=== PATIENT | male | born 1990 | race Caucasian/White ===

== ENCOUNTER → 2020-03-14 16:59 | Outpatient (CLI) | payer BC, SELFPAY ==
[2020-03-14 18:22] LABS: Basophils # 0.1 K/mm3 (0-0.2); Basophils % 0.9 % (0.1-2.0); Eosinophils # 0.1 K/mm3 (0.0-0.4); Eosinophils % 1.5 % (0.1-12.0); Hematocrit 48.5 % (42.0-52.0); Hemoglobin 16.2 g/dL (14.1-18.0); Lymphocytes # 1.1 K/mm3 (0.7-4.5); Lymphocytes % 18.8 % (10-50); Mean Corpuscular HGB Conc 33.5 g/dL (31.8-35.4); Mean Corpuscular Hemoglobin 30.8 pg (27.0-31.2); Mean Platelet Volume 9.1 fl (7.4-10.4); Monocytes # 0.3 K/mm3 (0.1-1.0); Monocytes % 4.6 % (1.7-9.3); Neutrophils # 4.3 K/mm3 (1.8-7.8); Neutrophils % 74.3 % (37.0-80.0); Platelet Count 214 K/mm3 (142-424); Red Blood Count 5.27 M/mm3 (4.60-6.20); Red Cell Distribution Width 13.2 % (11.5-17.5); White Blood Count 5.7 K/mm3 (4.8-10.8)
[2020-03-14 19:52] LABS: Chloride 101 mmol/L (98-107); Potassium 3.9 mmoL/L (3.5-5.1); Sodium 140 mmol/L (136-145)
[2020-03-14 19:54] LABS: Blood Urea Nitrogen 6 mg/dl (9-20); Estimated Glomerular Filt Rate 132 ml/min (>60); GFR (African American) 160 ML/MIN (>60)
[2020-03-14 19:55] LABS: Alanine Aminotransferase 10 U/L (12-78); Albumin Level 4.5 g/dl (3.5-5.0); Albumin/Globulin Ratio 1.6 (1.1-1.8); Alkaline Phosphatase 65 U/L (38-126); Anion Gap 12.9 mEq/L (5-15); Aspartate Amino Transferase 21 U/L (17-59); Bilirubin,Total 1.4 mg/dl (0.2-1.3); Calcium 9.4 mg/dl (8.4-10.2); Carbon Dioxide 30 mmol/L (22.0-30.0); Cholesterol 132 mg/dl (140-200); Globulin 2.8 g/dL (1.3-3.2); Glucose 87 mg/dl (74-100); HDL Cholesterol 44 mg/dl (40-60); Total Protein,Serum 7.3 g/dl (6.3-8.2); Triglycerides 68 mg/dl (30-150); VLDL Cholesterol 14 mg/dL (0-40)
[2020-03-14 20:12] LABS: T4 (Thyroxine) 9.7 ug/dl (5.53-11.0)
[2020-03-14 20:26] LABS: Thyroid Stimulating Hormone 1.74 uIU/mL (0.465-4.68)
[2020-03-16 13:53] LABS: Vitamin D 25 Hydroxy 25.4 ng/mL (30.0-100.0)
== END ==
PROVIDERS: Visit Provider Nurse Practitioner Family
DX: F32.9 Major depressive disorder, single episode, unspecified (principal); Z76.89 Persons encountering health services in other specified circumstances; E55.9 Vitamin D deficiency, unspecified
CPT/HCPCS: 80053; 80061; 82652; 84436; 84443; 85025

== ENCOUNTER 2023-07-29 15:52 | Emergency (ER) | payer SELFPAY ==
[2023-07-29 15:53] VITALS: BP 133/89; PULSE 96; RESP 16; TEMP 36.7; O2SAT 99; BMI 32.5
--- NOTE | 2023-07-29 16:36 | EXP.UTC ---
Discharge Plan Disposition Patient Disposition: Home, Self-Care Condition: Good Prescriptions Prescriptions: New pseudoephedrine HCl [Sudafed 12 Hour] 120 mg tablet extended release 120 mg PO Q12H PRN (Reason: nasal congestion) Qty: 20 0RF benzonatate 100 mg capsule 100 mg PO TID PRN (Reason: cough) Qty: 30 0RF No Action quetiapine [Seroquel] 100 mg tablet 100 mg PO HS Qty: 30 0RF Referrals Follow up/Referrals: Provider,Referral, MD [Primary Care Provider] - See instructions Activity Restrictions/Add. Instructions Additional Instructions/Restrictions: *Monitor Temp, Over the counter Motrin or Tylenol as directed/as needed Tylenol every 4 hours and Motrin every 6 hours (as long as your family doctor has told you that you can take it) for fever or pain. and straight to ER if unable to lower temp less than 101.0 after medication given *Warm salt water gargles may help to soothe the throat *Throat Lozenges? *Warm fluids like tea with honey may help to soothe the throat? *Sleep elevated *Humidifier/Vaporizer Follow up IMMEDIATELY for new or worsening symptoms or no Noticeable improvement over the next 48-72 hours. 911 for difficulty breathing or swallowing You were tested for today for ?Upper Respiratory Panel with COVID19 your test result should be back in the next 24 hours You may check for your results on the [facility], if your COVID test is positive you must quarantine for 5 days per the CDC Clinical Impressions Clinical Impression: Viral upper respiratory infection Stand Alone Forms Stand Alone Forms: Work/School Release Instructions Patient Instructions: DI for Viral Upper Respiratory Infection -- Adult, Common Cold Discharge ED Provider: Chantelle Harris [facility] [place] HPI General Stated complaint: fever, marcelino, runny nose Mode of Arrival: Ambulatory Source of Information: Patient Limitations: No Limitations Time Seen by Provider: 07/29/23 16:36 Description of Symptoms (Recalled from Triage Doc. by RN): Patient complaint of runny nose, aching, fever and headache for 2 days. HEENT Symptoms (Recalled from RN notes): Yes Resp Symptoms (Recalled from RN notes): No Skin Symptoms (Recalled from RN notes): No MS Symptoms (Recalled from RN notes): No Functional Status (Recalled from RN notes): wnl History of Present Illness Provider Complaint: Patient states that he started yesterday with flu like symptoms, nasal congestion, headache, fever, chills and body aches States that today he was still not feeling any better so he came in to get checked Related Data Previous Rx's Medication Instructions Recorded quetiapine 100 mg tablet (Seroquel) 100 mg PO HS #30 tabs 10/31/20 benzonatate 100 mg capsule 100 mg PO TID PRN cough #30 caps 07/29/23 pseudoephedrine HCl 120 mg 120 mg PO Q12H PRN nasal 07/29/23 tablet,extended release (Sudafed congestion #20 tabs 12 Hour) Allergies Allergy/AdvReac Type Severity Reaction Status Date / Time amoxicillin Allergy Verified 10/31/20 13:16 Penicillins Allergy Verified 10/31/20 13:16 Worker's Comp Is this a Worker's Comp case?: No [facility] Disclaimer: The information contained in this section may have been updated after the patient was seen, as this information can be updated by other users. Social History Smoking Status: Never smoker alcohol intake: current substance use type: denies use and marijuana current occupational status: employed Travel in the last 8 weeks: Inside the [place] ROS Obtained: Yes All systems reviewed & no additional complaints except as documented and Yes Systems reviewed as appropriate & no additional complaints except as documented Constitutional Constitutional: Reports system reviewed and no additional complaints, except as documented, Reports as per HPI, Reports body ache, Reports chills, Reports fever(s) and Reports headache(s) ENT Ears, Nose, Mouth, an
[2023-07-29 17:00] LABS: UTC Influenza A Antigen Negative (Negative); UTC Influenza B Antigen Negative (Negative)
[2023-07-29 17:10] VITALS: BP 133/89; PULSE 96; RESP 16; TEMP 36.7; O2SAT 99
== END 2023-07-29 17:25 | disposition home or self-care (01) ==
PROVIDERS: Emergency Provider Nurse Practitioner
DX: U07.1 COVID-19 (principal)
CPT/HCPCS: 87635; 87804; 99204; 99212; G0463

== ENCOUNTER 2024-05-26 09:04 | Emergency (ER) | payer SELFPAY ==
[2024-05-26 09:28] VITALS: BP 133/88; PULSE 78; RESP 16; TEMP 36.7; O2SAT 96; BMI 30.5
--- NOTE | 2024-05-26 09:34 | EXP.UTC ---
Discharge Plan Disposition Patient Disposition: Home, Self-Care Condition: Good Prescriptions Prescriptions: New doxycycline hyclate 100 mg capsule 100 mg PO BID Qty: 20 0RF mupirocin 2 % ointment 1 applic topical TID 10 Days Qty: 22 0RF Rx Instructions: Apply to wound on right hand as directed triamcinolone acetonide 0.025 % cream 1 applic topical BID PRN (Reason: rash) Qty: 15 0RF Rx Instructions: apply to rash on palm of left hand, do not apply to open wounds No Action quetiapine [Seroquel] 100 mg tablet 100 mg PO HS Qty: 30 0RF pseudoephedrine HCl [Sudafed 12 Hour] 120 mg tablet extended release 120 mg PO Q12H PRN (Reason: nasal congestion) Qty: 20 0RF benzonatate 100 mg capsule 100 mg PO TID PRN (Reason: cough) Qty: 30 0RF Referrals Follow up/Referrals: Bonny Galvan MD [Referring] - See instructions (Call office for appointment) ProviderMilton MD [Primary Care Provider] - See instructions Activity Restrictions/Add. Instructions Additional Instructions/Restrictions: Make sure to wear gloves when you are handling or dealing with chemicals Follow up with Dermatology as discussed Use topical Mupirocin on wound on right hand Use triacimalone ointment on palm of left hand this is a steriod ointment and will help with the itching Follow up with your Family Doctor for further evaluation and treatment Clinical Impressions Clinical Impression: Skin problem Stand Alone Forms Stand Alone Forms: Work/School Release Instructions Patient Instructions: Triamcinolone Topical, Mupirocin Print Language Print Language: Czech Discharge ED Provider: Chantelle Harris [facility] [place] HPI General Stated complaint: rash Mode of Arrival: Ambulatory Source of Information: Patient Limitations: No Limitations Time Seen by Provider: 05/26/24 09:34 Description of Symptoms (Recalled from Triage Doc. by RN): Patient reports rash on hands. 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 States about a month ago he noticed rash like areas on his hands and has blister like areas on the base of his right middle and ring finger States he has tried several over the counter creams but nothing has helped so today he came in to get them checked Related Data Previous Rx's ?Medication ?Instructions ?Recorded quetiapine 100 mg tablet (Seroquel) 100 mg PO HS #30 tabs 10/31/20 benzonatate 100 mg capsule 100 mg PO TID PRN cough #30 caps 07/29/23 pseudoephedrine HCl 120 mg 120 mg PO Q12H PRN nasal 07/29/23 tablet,extended release (Sudafed congestion #20 tabs 12 Hour) doxycycline hyclate 100 mg capsule 100 mg PO BID #20 caps 05/26/24 mupirocin 2 % topical ointment 1 applic topical TID 10 days #22 05/26/24 grams triamcinolone acetonide 0.025 % 1 applic topical BID PRN rash #15 05/26/24 topical cream grams Allergies Allergy/AdvReac Type Severity Reaction Status Date / Time amoxicillin Allergy Verified 10/31/20 13:16 Penicillins Allergy Verified 10/31/20 13:16 Worker's Comp Is this a Worker's Comp case?: No [facility] Disclaimer: The information contained in this section may have been updated after the patient was seen, as this information can be updated by other users. Social History Smoking Status: Never smoker alcohol intake: current alcohol intake frequency: a few times a week substance use type: denies use and marijuana current occupational status: employed Travel in the last 8 weeks: Inside the [place] ROS Obtained: Yes All systems reviewed & no additional complaints except as documented and Yes Systems reviewed as appropriate & no additional complaints except as documented Constitutional Constitutional: Reports system reviewed and no additional complaints, except as documented and Reports as per HPI ENT Ears, Nose, Mouth, and Throat: Reports system reviewed and no additional complaints, except as documented and Reports as per HPI Cardiovascular Cardiovascular: Reports system reviewed and no additional complaints, except as documented and Reports as per HPI Respiratory Respiratory: Reports system reviewed and no additional complaints, except as documented and Reports as per HPI Gastrointestinal Gastrointestingal: Reports system reviewed and no additional complaints, except as documented and as per HPI Integumentary/Breasts Skin/Breast: Reports system reviewed and no additional complaints, except as documented, Reports as per HPI and Reports other Comments: blister like rash on hands x 1 month Physical Exam General General appearance: alert and in no apparent distress ENT ENT exam: Present mucous membranes moist Respiratory Respiratory exam: Present normal lung sounds bilaterally; Absent respiratory distress or wheezes Cardiovascular Cardiovascular exam: Present regular rate, normal rhythm and normal heart sounds Abdominal Exam Abdominal exam: Present soft and normal bowel sounds; Absent distention or tenderness Neurological Exam Neurological exam: Present alert, oriented X3 and normal gait Skin Skin exam: Present other (patient has open blister like areas on right hand at base of right middle and ring finger and small blister like areas on palm of left hand that appear different than area on his right hand) Medical Decision Making Stevie Inquiry Pt receiving controlled substance: No Stevie was queried for this patient: No Vital Signs: 05/26/24 09:28 Temperature 98.0 F Temperature Source Oral Pulse Rate [Radial] 78 Respiratory Rate 16 Blood Pressure [Right Arm] 133/88 Blood Pressure Mean [Right Arm] 103 Blood Pressure Source [Right Arm] Automatic Cuff Blood Pressure Position [Right Arm] Sitting 02 Sat by Pulse Oximetry 96 Oxygen Delivery Method Room Air
[2024-05-26 09:52] VITALS: BP 133/88; PULSE 78; RESP 16; TEMP 36.7; O2SAT 96
== END 2024-05-26 09:53 | disposition home or self-care (01) ==
PROVIDERS: Emergency Provider Nurse Practitioner
DX: L98.9 Disorder of the skin and subcutaneous tissue, unspecified (principal)
CPT/HCPCS: 99212; 99214; G0463

== ENCOUNTER 2024-06-05 16:25 | Emergency (ER) | payer SELFPAY ==
[2024-06-05 16:27] VITALS: BP 105/72; PULSE 84; RESP 18; TEMP 36.7; O2SAT 98; BMI 33.9
--- NOTE | 2024-06-05 16:39 | HMH.EDGENADL ---
Discharge Plan Disposition Patient Disposition: Home, Self-Care Condition: Good Prescriptions Prescriptions: New clobetasol 0.05 % cream 1 applic topical BID 14 Days Qty: 30 0RF prednisone 50 mg tablet 50 mg PO DAILY 5 Days Qty: 5 0RF No Action quetiapine [Seroquel] 100 mg tablet 100 mg PO HS Qty: 30 0RF pseudoephedrine HCl [Sudafed 12 Hour] 120 mg tablet extended release 120 mg PO Q12H PRN (Reason: nasal congestion) Qty: 20 0RF benzonatate 100 mg capsule 100 mg PO TID PRN (Reason: cough) Qty: 30 0RF doxycycline hyclate 100 mg capsule 100 mg PO BID Qty: 20 0RF mupirocin 2 % ointment 1 applic topical TID 10 Days Qty: 22 0RF Rx Instructions: Apply to wound on right hand as directed triamcinolone acetonide 0.025 % cream 1 applic topical BID PRN (Reason: rash) Qty: 15 0RF Rx Instructions: apply to rash on palm of left hand, do not apply to open wounds Referrals Follow up/Referrals: Bonny Galvan MD [Referring] - See instructions (Palmar dyshidrotic eczema) Provider,MD Milton [Primary Care Provider] - See instructions Activity Restrictions/Add. Instructions Additional Instructions/Restrictions: Please call the morning to make your appointment with dermatology. Follow-up with your PCP for any worsening signs or symptoms or return to the ER as needed Clinical Impressions Clinical Impression: Dyshidrotic eczema Stand Alone Forms Stand Alone Forms: Work/School Release Instructions Patient Instructions: DI for Atopic Dermatitis-Adult Print Language Print Language: Kinyarwanda Discharge ED Provider: Cinthia Villatoro General Adult HPI General Chief complaint: Skin/Abscess/Foreign Body Stated complaint: Sores on both hands,dry skin Time Seen by Provider: 06/05/24 16:28 History of Present Illness HPI narrative: Patient presents for evaluation of sores on the palmar surfaces of his bilateral hands. Patient has a several month history of initially itchy vesicle lesions that then peel. He is tried [id number] Aveeno and other topical therapies without success. 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 He denies any pain fever chills hemoptysis hematochezia melena nausea vomiting diarrhea however he does state when they get very dry his hands were cracked which does hurt. Related Data Previous Rx's ?Medication ?Instructions ?Recorded quetiapine 100 mg tablet (Seroquel) 100 mg PO HS #30 tabs 10/31/20 benzonatate 100 mg capsule 100 mg PO TID PRN cough #30 caps 07/29/23 pseudoephedrine HCl 120 mg 120 mg PO Q12H PRN nasal 07/29/23 tablet,extended release (Sudafed congestion #20 tabs 12 Hour) doxycycline hyclate 100 mg capsule 100 mg PO BID #20 caps 05/26/24 mupirocin 2 % topical ointment 1 applic topical TID 10 days #22 05/26/24 grams triamcinolone acetonide 0.025 % 1 applic topical BID PRN rash #15 05/26/24 topical cream grams clobetasol 0.05 % topical cream 1 applic topical BID 2 weeks #30 06/05/24 grams prednisone 50 mg tablet 50 mg PO DAILY 5 days #5 tabs 06/05/24 Allergies Allergy/AdvReac Type Severity Reaction Status Date / Time amoxicillin Allergy Verified 10/31/20 13:16 Penicillins Allergy Verified 10/31/20 13:16 [facility] Disclaimer: The information contained in this section may have been updated after the patient was seen, as this information can be updated by other users. Social History Smoking Status: Never smoker alcohol intake: current alcohol intake frequency: a few times a week substance use type: denies use and marijuana current occupational status: employed Travel in the last 8 weeks: Inside the [place] ROS Obtained: Yes Systems reviewed as appropriate & no additional complaints except as documented Physical Exam General General appearance: alert and in no apparent distress Respiratory Respiratory exam: Prese
[2024-06-05 17:30] VITALS: BP 134/80; PULSE 80; RESP 16; TEMP 36.7; O2SAT 99
== END 2024-06-05 17:31 | disposition home or self-care (01) ==
PROVIDERS: Emergency Provider Emergency Medicine
DX: L30.1 Dyshidrosis [pompholyx] (principal)
CPT/HCPCS: 99283